=== PATIENT | male | born 1945 | race Caucasian/White ===

== ENCOUNTER 2017-02-26 07:26 | Inpatient (IN) | payer MEDICARE, OTHER ==
--- NOTE | 2017-02-14 14:48 | HP ---
HISTORY AND PHYSICAL: DATE OF SURGERY: 02/26/17. DATE OF OFFICE VISIT: 02/13/17. SURGEON: Aleah Gomez MD * (DICTATED BY LINA BOURNE) PROCEDURE: Right total knee revision, patella versus all 3 components. CHIEF COMPLAINT: Right knee pain. HISTORY OF PRESENT ILLNESS: Mr. Gabriel is a 71-year-old gentleman with complaints of right knee pain secondary to advanced osteoarthritis. He has failed conservative management, has elected to proceed with a right total knee arthroplasty, which is scheduled for 02/26/17, with Dr. Gomez. PAST MEDICAL HISTORY: Obesity, hypothyroidism, diverticulitis, hypertension, hypercholesterolemia, COPD, and GERD. PAST SURGICAL HISTORY: Right total knee arthroplasty, unknown bowel surgery, cholecystectomy, appendectomy, and tonsillectomy. CURRENT MEDICATIONS: 1. Aspirin 81 mg daily. 2. Levothyroxine 50 mcg daily. 3. Omeprazole 40 mg daily. 4. Simvastatin 20 mg daily. 5. Tamsulosin. 6. Lisinopril. ALLERGIES: No known drug allergies. FAMILY HISTORY: Cancer and emphysema. SOCIAL HISTORY: He is a 71-year-old gentleman, lives with his . He is retired. He does not smoke or use drugs. REVIEW OF SYSTEMS: A complete 14-point review of systems is reviewed with the patient, was all negative or noncontributory. PHYSICAL EXAMINATION GENERAL: He is well developed, well nourished, in no acute distress. VITAL SIGNS: He stands 6 feet tall, weighs 262 pounds, blood pressure is 136/89 , heart rate is 60. HEENT: Normocephalic, atraumatic. NECK: Supple. No palpable lymph nodes. CARDIO: Regular rate and rhythm. Strong S1 and S2. ABDOMEN: Soft, nontender, and nondistended. NEUROLOGIC: Alert and oriented x3. Cranial nerves II through XII are intact. MUSCULOSKELETAL: Right lower extremity, the skin is intact. There are no open wounds or abrasions. There is a well-healed scar for the anterior aspect of the right knee. His lower extremity muscle group strength is intact at 5/5. He has 2+ dorsalis pedis pulses and intact sensation. He has 20 to 90 degrees active motion of the knee. No varus or valgus instability. ASSESSMENT AND PLAN: Mr. Gabriel is a 71-year-old gentleman with continued complaints of right knee pain and swelling. He underwent a right total knee arthroplasty in March 2015. He has failed conservative management and continues to have daily pain and he has elected to proceed with a right total knee revision, patella versus all three components. Dr. Gomez discussed the risks and benefits of the surgery and all of his questions were answered. Coumadin, Colace, and Percocet were sent to his pharmacy for postoperative pain control and DVT prophylaxis. He will follow up with Dr. Gomez back 2 weeks after the surgery. LINA BOURNE [id number]/[facility] #: [id number] SYDNIE
[~2017-02-26 07:26] MED LIST: Buffered Lidocaine 0.9% SYRIN* 5 ML/SYR SYRINGE INTRADERM ONE; Dexamethasone IV* 4 MG/ML 1 ML (4 MG) IV SLOW PU ONE; Metoclopramide IV* 5 MG/ML 2 ML VIAL IV SLOW PU ONE
[2017-02-26] MEDS ORDERED: Metoclopramide IV* 5 MG/ML 2 ML VIAL ONE (07:40)
[2017-02-26] MEDS ORDERED: Dexamethasone IV* 4 MG/ML 1 ML (4 MG) ONE (07:40)
[2017-02-26] MEDS ORDERED: Buffered Lidocaine 0.9% SYRIN* 5 ML/SYR SYRINGE ONE (07:41)
[2017-02-26] MEDS ORDERED: ceFAZolin 2 GM PREMIX (*) 50 ML IVPB ONE (07:41)
[2017-02-26] MEDS ORDERED: Morphine PF AMP (0.5MG/ML)* 5 MG/10 ML AMP ONE (08:41)
[2017-02-26] MEDS ORDERED: Midazolam* 1 MG/ML 2 ML VIAL (2 MG) ONE ×2 (08:41→11:58)
[2017-02-26] MEDS ORDERED: Lidocaine 2% PF * 5 ML VIAL ONE (08:42)
[2017-02-26] MEDS ORDERED: Bupivacaine 0.5% SDV PF* 30 ML VIAL ONE (08:48)
[2017-02-26] MEDS ORDERED: fentaNYL* 50 MCG/ML 2 ML VIAL (100 MCG VIAL) ONE ×2 (08:50→13:10)
[2017-02-26] MEDS ORDERED: Propofol* 10 MG/ML 20 ML BTL IV PUSH ONE (08:52)
[2017-02-26] MEDS ORDERED: Midazolam* 1 MG/ML 5 ML VIAL (5 MG) ONE (10:22)
[2017-02-26] MEDS ORDERED: KETAMINE HCL* 50 MG/ML 10 ML VIAL ONE (10:22)
[2017-02-26] MEDS ORDERED: Acetaminophen TAB* 325 MG PO PRN (10:41)
[2017-02-26] MEDS ORDERED: Ketorolac INJ* 30 MG/ML 1 ML VIAL IV PRN (10:41)
[2017-02-26] MEDS ORDERED: HYDROcodone/ACETAMIN 5-325 MG* 1 TAB PO PRN (10:41)
[2017-02-26] MEDS ORDERED: HYDROmorphone INJ* 1 MG/ML CARPUJECT SYRINGE IV PRN (10:41)
[2017-02-26] MEDS ORDERED: Ondansetron INJ* 2 MG/ML VIAL IV PRN ×2 (10:41→10:45)
[2017-02-26] MEDS ORDERED: EPHEDrine (Pressors)* 50 MG/ML VIAL IV PUSH PRN (10:45)
[2017-02-26] MEDS ORDERED: Naloxone* 0.4 MG/ML 1 ML VIAL IV PRN (10:45)
[2017-02-26] MEDS ORDERED: Nalbuphine* 20 MG/ML 1 ML VIAL IV PRN (10:45)
[2017-02-26] MEDS ORDERED: Lactated Ringers 500 ml BAG* 500 ML IV PRN (10:45)
[2017-02-26] MEDS ORDERED: Scopolamine 1.5 mg* PATCH TRANSDERM SCH (11:00)
[2017-02-26] MEDS ORDERED: OBEPIDURAL* 250 ML EPIDURAL SCH (11:00)
[2017-02-26] MEDS ORDERED: Bisacodyl SUPP* 10 MG SUPP PR PRN (12:34)
[2017-02-26] MEDS ORDERED: Polyethylene Glycol 3350* 17 GM PACKET PO PRN (12:34)
[2017-02-26] MEDS ORDERED: Ibuprofen TAB* 800 MG PO PRN (12:39)
[2017-02-26] MEDS: fentaNYL* 50 MCG/ML 2 ML VIAL (100 MCG VIAL) IV PRN ×2 (13:11→14:08)
[2017-02-26] MEDS ORDERED: Acetaminophen TAB* 325 MG ONE (13:17)
[2017-02-26] MEDS: Acetaminophen TAB* 325 MG PO SCH ×2 (13:21→20:59)
--- NOTE | 2017-02-26 13:41 | RAD ---
HISTORY: Status post right knee arthroplasty revision COMPARISONS: January 04, 2017 VIEWS: 3, Frontal and lateral views of the right knee FINDINGS: BONE DENSITY: Normal. BONES: The patient is status post right knee arthroplasty. There is no hardware failure or osteolysis. JOINTS: The patient is status post right knee arthroplasty. ALIGNMENT: There is no dislocation. SOFT TISSUES: Unremarkable. OTHER FINDINGS: There is post surgical change to the soft tissues IMPRESSION: STATUS POST RIGHT KNEE ARTHROPLASTY
--- NOTE | 2017-02-26 13:43 | RAD ---
INDICATION: Right knee arthroplasty revision COMPARISONS: January 04, 2017 TECHNIQUE: Fluoroscopy was provided for a surgical procedure. Total fluoroscopy time is: 7.3 seconds FINDINGS: Spot images demonstrate right knee arthroplasty IMPRESSION: FLUOROSCOPY WAS PROVIDED FOR A SURGICAL PROCEDURE CPT II Codes: 6045F
[2017-02-26] MEDS: oxyCODONE TAB* 5 MG TAB PO PRN ×2 (15:55→20:59)
[2017-02-26] MEDS: Atorvastatin* 10 MG TAB PO SCH (15:55)
[2017-02-26] MEDS: ceFAZolin 1 GM in Dextrose (*) 1 GM/50 ML BAG IVPB SCH (15:58)
[2017-02-26] MEDS ORDERED: ceFAZolin 1 GM VIAL(*) 1 GM in NS 0.9% 50 ML* 50 ML IVPB SCH (16:00)
--- NOTE | 2017-02-26 17:26 | CONS ---
CONSULTATION REPORT: DATE OF CONSULT: 02/26/17. TIME OF EVALUATION: 1:45 p.m. REQUESTING PHYSICIAN: Dr. Gomez. REASON FOR CONSULTATION: Management of comorbidities. CHIEF COMPLAINT: "I feel fine." HISTORY OF PRESENT ILLNESS: Mr. Gabriel is a 72-year-old male with a past medical history of obesity with a BMI of 36, hypothyroidism, diverticulitis, hypertension, hyperlipidemia, COPD, GERD, who was admitted to [facility] for an elective right total knee revision. Mr. Gabriel has had complaints of right knee pain secondary to advanced osteoarthritis and he has failed conservative management. Initial plan was to proceed with a right total knee arthroplasty revision, patellar versus all 3 components. He did undergo the procedure today and only the patellar revision needed with an estimated EBL of 200 mL. The hospitalist service was consulted for medical management of his comorbidities. He states that his pain is a 5/10 at this time if he moves his right lower extremity, but otherwise he feels well. Denies nausea, shortness of breath, numbness or tingling of his right right lower extremity. PAST MEDICAL HISTORY: 1. Obesity with BMI of 36. 2. Hypothyroidism. 3. Diverticulitis. 4. Hypertension. 5. Hypercholesterolemia. 6. COPD. 7. GERD. PAST SURGICAL HISTORY: 1. Status post right total knee arthroplasty. 2. Status post cholecystectomy. 3. Status post appendectomy. 4. Status post tonsillectomy. MEDICATIONS LIST: 1. Aspirin 81 mg p.o. daily. 2. Finasteride 5 mg p.o. daily. 3. Ibuprofen 1000 mg p.o. q. 12 hours p.r.n. pain. 4. Levothyroxine 100 micrograms p.o. q.a.m. 5. Lisinopril 5 mg p.o. daily. 6. Omeprazole 40 mg p.o. q.a.m. 7. Simvastatin 10 mg p.o. daily. 8. Tamsulosin 0.4 mg p.o. q.a.m. ALLERGIES: No known drug allergies. FAMILY HISTORY: There is a history of cancer and emphysema. SOCIAL HISTORY: No history of tobacco, alcohol, or drug use. Surrogate decision maker is his , Sonia Gabriel. Phone number is [phone]. REVIEW OF SYSTEMS: A 14-point review of systems was performed and all the pertinent negative and positive findings are in the HPI. PHYSICAL EXAM: Vital Signs: Temperature 97.3, heart rate is 54, respiratory rate is 16, oxygen saturation is 100% on 2 L nasal cannula, blood pressure is 131/76. General: The patient is a pleasant, obese gentleman lying in bed, in no acute distress. HEENT: Pupils are equal. Moist mucous membranes. CVS: Normal S1 and S2. Regular rate and rhythm. Chest: Breath sounds present bilaterally with no added sounds. Abdomen: Obese, bowel sounds are present. Extremities: There is a cryo unit and Hemovac to the right knee. He has good capillary refills bilaterally. Sensation is intact. Neuro: He is alert, awake and oriented x3. Able to move all 4 extremities. ASSESSMENT AND PLAN: Mr. Gabriel is a 71-year-old male with a past medical history of obesity, hypothyroidism, hypertension, hypercholesterolemia, COPD, and GERD, who was admitted for an elective right total knee revision with estimated blood loss of 200 mL. Hospitalist service was consulted to assist with management of comorbidities. 1. Status post right total knee revision. Management as per Ortho. 2. Hypertension is controlled. We will continue his lisinopril and monitor his blood pressure. 3. BPH. We will continue finasteride and tamsulosin. 4. GERD. We will continue omeprazole. 5. Hyperlipidemia. We will continue simvastatin. 6. DVT prophylaxis will be with Lovenox as per Orthopedics. 7. Code status is full. TIME SPENT: Approximately 45 minutes were spent with the patient interview, medical record review, physical examination to complete this consultation, more than half of this time was spent [id number] with the patient in coordination of care. [id number]/[facility] #: [id number] SYDNIE
[2017-02-26] MEDS: Docusate CAP* 100 MG PO SCH (20:59)
[2017-02-27] MEDS: Acetaminophen TAB* 325 MG PO SCH ×2 (00:01→05:31)
[2017-02-27] MEDS: ceFAZolin 1 GM in Dextrose (*) 1 GM/50 ML BAG IVPB SCH ×2 (00:01→07:35)
[2017-02-27] MEDS: oxyCODONE TAB* 5 MG TAB PO PRN ×2 (05:30→16:42)
[2017-02-27] MEDS: Levothyroxine TAB* 100 MCG TAB PO SCH (05:31)
[2017-02-27] MEDS ORDERED: Morphine INJ* 2 MG/ML 1 ML SYRINGE (TWO MG - NEW SYRINGE VERSION) IV PRN (06:00)
[2017-02-27] MEDS ORDERED: diPHENhydraMINE IV* 50 MG/ML 1 ml VIAL (BENADRYL) IV PRN (06:00)
[2017-02-27] MEDS ORDERED: Acetaminophen TAB* 325 MG PO PRN (06:00)
[2017-02-27] MEDS ORDERED: Ondansetron INJ* 2 MG/ML VIAL IV PRN (06:00)
[2017-02-27] MEDS ORDERED: Ondansetron TAB* 4 MG PO PRN (06:00)
--- NOTE | 2017-02-27 06:29 | OP ---
DATE OF OPERATION: 02/26/17 - ROOM #343 DATE OF : 43 ATTENDING SURGEON: Aleah Gomez MD MAIL SORTING SUPERVISOR: LINA Hernandez. Mr. Frances did help throughout the procedure with preparation of the leg, wound retraction, manipulation of the knee, and wound closure. ANESTHESIOLOGIST: Dr. Yamilex Willingham. ANESTHESIA: Spinal. PRE-OP DIAGNOSIS: Painful right total knee arthroplasty. POST-OP DIAGNOSIS: Painful right total knee arthroplasty with patellar component malalignment and loosening. OPERATIVE PROCEDURE: Revision right total knee arthroplasty, revision of patellar component, wide scar excision. ESTIMATED BLOOD LOSS: Less than 200 cc. TOURNIQUET TIME: 53 minutes. SPECIMENS: Multiple culture swabs were sent to Microbiology for cultures and sensitivities. Scar tissue was sent to Pathology as well. Removed patellar button was sent to Pathology. BRIEF HISTORY/INDICATIONS: Mr. Gabriel is a 71-year-old gentleman with painful right total knee arthroplasty, sent for surgery in March 2015 at an outside facility. The patient came to see me in December of this year. He had questions about his chronic pains and surgery. After radiographs were obtained, there was some malalignment of all 3 components with the patellar component being most malaligned. I did offer him revision total knee arthroplasty. At preoperative H and P, the patient and I discussed revising the patellar component versus all 3 components. I was concerned about explanting the femur and tibia due to bone loss. The patient wished for me to make an intraoperative decision. Informed consent was obtained from the patient. He understood the risk of surgery included but were not limited to bleeding, infection, damage to nearby structures, continued pain, need for further surgery, intraoperative fracture, nerve palsy, hardware failure or loosening, knee stiffness, loss of motion, stroke, heart attack, blood clot, and . He wished to proceed. INTRAOPERATIVE FINDINGS: Intraoperatively, the patient was noted to have 5 to 125 degrees of flexion at the knee after anesthesia was placed. Upon opening the knee, there was no obvious purulence. There was extensive scar tissue around the entire capsule, medial and lateral gutters. The patellar component was malaligned and loose. Femoral and tibial components were checked for any looseness and none was found. The components were stable. Decision was made intraoperatively to leave the femoral and tibial components, performed wide scar excision, and revised the patellar component. DESCRIPTION OF PROCEDURE: Mr. Gabriel was identified in the preanesthesia unit. His right lower extremity was marked as the correct operative site. Informed consent was signed and placed in the chart. The patient was taken to the operating room and placed under spinal anesthesia. A Bess catheter was placed. Tourniquet was placed on the right thigh. Right lower extremity was prepped and draped in the usual sterile fashion. Preop time-out was made to correctly identify the patient side and site. Appropriate perioperative antibiotics were given within 1 hour of incision. The patient's former midline incision was used. Tourniquet was inflated until the tourniquet time for this procedure, was 53 minutes. A 10-blade was used to incise the skin layer and carried down to the extensor mechanism. A new 10- blade was used to make a standard medial parapatellar arthrotomy. I could not blanquita the patella because of extensive scar tissue. This was meticulously excised using electrocautery. There was a significant amount of scar tissue in the medial and lateral gutters , suprapatellar pouch, as well as around the patellar tendon. This was all carefully excised. At this time the patella was subluxed laterally and the knee was flexed up. Scar tissue and soft tissue were carefully removed from around the femoral and tibial implants. These implants were checked for any loosening. No loosening of the femoral or tibial implants was found. Femoral component was slightly flexed, although the soft tissue along the anterior femur did not look inflamed. With range of motion, there was no clunking or catching along the superior portion of the femoral component. Decision was made to leave the femoral and tibial components. The patella was everted. A large amount of scar tissue and soft tissue was excised from around the patella. At this point, it was visible that there was some patellar loosening. Small oscillating saw was used to remove the patella with minimal bone loss. Next, the large oscillating saw was used to make patellar cut based on preop x-rays and caliber measurements. The patella was sized to a size 35. A 35 trial patellar was placed after the peg holes were drilled, any excess cement were carefully removed. The knee was taken through a range of motion. There was no catching of the patellar trial at any point in tracking. Patellofemoral tracking was satisfactory. At this point, C-arm views were obtained including sunrise views. The patellar cut was deemed to be satisfactory with satisfactory alignment. The patellar bone was carefully irrigated and dried. A size 35 and 3 peg all poly patellar component from [employer] was cemented on to the patellar. Simplex cement with tobramycin was used. Tourniquet was turned down at 53 minutes. Once the cement had fully cured, the patella was taken through a range of motion. There was good patellofemoral tracking with no abnormal tracking. No clunking near the femoral component was noted. The knee was copiously irrigated with sterile saline. Electrocautery was used to obtain meticulous hemostasis. The medial arthrotomy was closed using interrupted #1 Vicryl over a medium Hemovac drain. The rest of the incision was closed in a layered fashion using 0 and 2-0 Vicryls. Skin was closed using running 3-0 nylon suture. Sterile Xeroform, 4x4, and Webril were used to cover the incision. Dg wrap and cold pack were placed over this. The patient's anesthesia was reversed without difficulty. He was taken to the PACU in stable condition. Intended weightbearing will be weightbearing as tolerated. Intended DVT prophylaxis will be Lovenox in the hospital and aspirin on discharge. [id number]/[facility] #: [id number] SYDNIE
[2017-02-27 06:40] LABS: Hematocrit 36 % (42-52); Hemoglobin 12.3 g/dl (14.0-18.0)
[2017-02-27 06:59] LABS: BUN/Creatinine Ratio 12.9 (8-20); Calcium 8.8 mg/dL (8.6-10.3); EGFR African American 102.7 (>60); EGFR Non-African American 79.9 (>60); Potassium 4.4 mmol/L (3.5-5.0)
[2017-02-27] MEDS: Tamsulosin CAP* 0.4 MG PO SCH (07:34)
[2017-02-27] MEDS: Finasteride TAB* 5 MG PO SCH (07:34)
[2017-02-27] MEDS: Docusate CAP* 100 MG PO SCH ×2 (07:34→19:53)
[2017-02-27] MEDS: oxyCODONE/Acetamin 5/325 MG* TAB PO PRN ×4 (07:34→19:53)
[2017-02-27] MEDS: Lisinopril TAB* 5 MG PO SCH (07:34)
[2017-02-27] MEDS: Omeprazole CAP* 20 MG PO SCH (07:35)
--- NOTE | 2017-02-27 07:52 | PN ---
Progress Note - Progress Note Date of Service: 02/27/17 SOAP: Subjective: Pt. is alert, reports pain is controlled. Objective: RLE - drain removed, tip intact with 200 cc ss drainage. distally NVI. Vital Signs: Temp Pulse Resp BP Pulse Ox 98.3 F 63 16 120/54 96 02/27/17 07:29 02/27/17 07:29 02/27/17 07:34 02/27/17 07:29 02/27/17 07:29 Laboratory Results - last 24 hr 02/27/17 02/27/17 02/27/17 06:19 06:19 06:19 Hgb 12.3 L Hct 36 L INR (Anticoag Therapy) 0.90 Sodium 131 L Potassium 4.4 Chloride 99 L Carbon Dioxide 28 Anion Gap 4 BUN 12 Creatinine 0.93 Est GFR ( Amer) 102.7 Est GFR (Non-Af Amer) 79.9 BUN/Creatinine Ratio 12.9 Glucose 147 H Calcium 8.8 Assessment: 71 yo M pod 1 s/p revision RTKA - patella component and scar excision Plan: wbat pt/ot xrays satisfactory lovenox in hospital, home on aspirin prn analgesia
[2017-02-27] MEDS: Enoxaparin(*) 30 MG/0.3 ML SYR SUBCUT SCH (10:17)
--- NOTE | 2017-02-27 10:31 | PN ---
Progress Note - Progress Note Date of Service: 02/27/17 SOAP: Subjective: Pt sitting comfortably in chair. No complaint of pain. Objective: Dressing clean and dry. Drained pulled earlier. Calves soft, nontender. DP pulses 2+ Vital Signs: Temp Pulse Resp BP Pulse Ox 98.3 F 63 16 120/54 96 02/27/17 07:29 02/27/17 07:29 02/27/17 10:17 02/27/17 07:29 02/27/17 07:29 Laboratory Last Values Hgb 12.3 g/dl (14.0-18.0) L 02/27/17 06:19 Hct 36 % (42-52) L 02/27/17 06:19 INR (Anticoag Therapy) 0.90 (0.89-1.11) 02/27/17 06:19 Sodium 131 mmol/L (133-145) L 02/27/17 06:19 Potassium 4.4 mmol/L (3.5-5.0) 02/27/17 06:19 Chloride 99 mmol/L (101-111) L 02/27/17 06:19 Carbon Dioxide 28 mmol/L (22-32) 02/27/17 06:19 Anion Gap 4 mmol/L (2-11) 02/27/17 06:19 BUN 12 mg/dL (6-24) 02/27/17 06:19 Creatinine 0.93 mg/dL (0.67-1.17) 02/27/17 06:19 Est GFR ( Amer) 102.7 (>60) 02/27/17 06:19 Est GFR (Non-Af Amer) 79.9 (>60) 02/27/17 06:19 BUN/Creatinine Ratio 12.9 (8-20) 02/27/17 06:19 Glucose 147 mg/dL (70-100) H 02/27/17 06:19 Calcium 8.8 mg/dL (8.6-10.3) 02/27/17 06:19 Assessment: 71 yo male s/p right revision TKA POD#1 Plan: PT/OT WBAT Pain control Lovenox for DVT prophylaxis, he will go home on ASA
--- NOTE | 2017-02-27 13:25 | PN ---
Hospitalist Progress Note HOSPITALIST ADDENDUM Hospitalist service consulted for management of comorbidities. BP is well controlled with his usual Lisinopril dose. Continue current management.
[2017-02-27] MEDS: Magnesium Hydroxide LIQ* 30 ML UDC PO PRN (16:43)
[2017-02-27] MEDS: Atorvastatin* 10 MG TAB PO SCH (17:05)
[2017-02-28] MEDS: oxyCODONE/Acetamin 5/325 MG* TAB PO PRN ×4 (04:26→16:15)
[2017-02-28] MEDS: oxyCODONE TAB* 5 MG TAB PO PRN ×2 (06:23→10:44)
[2017-02-28] MEDS: Levothyroxine TAB* 100 MCG TAB PO SCH (06:24)
[2017-02-28 07:21] LABS: Hematocrit 35 % (42-52); Hemoglobin 11.9 g/dl (14.0-18.0)
--- NOTE | 2017-02-28 08:18 | PN ---
Progress Note - Progress Note Date of Service: 02/28/17 SOAP: Subjective: resting comfortably with minimal pain Objective: Vital Signs Temp Pulse Resp BP Pulse Ox 97.9 F 56 18 128/77 97 02/28/17 07:30 02/28/17 07:30 02/28/17 07:53 02/28/17 07:30 02/28/17 07:35 Laboratory Last Values Hgb 11.9 g/dl (14.0-18.0) L 02/28/17 06:59 Hct 35 % (42-52) L 02/28/17 06:59 INR (Anticoag Therapy) 0.90 (0.89-1.11) 02/27/17 06:19 Sodium 131 mmol/L (133-145) L 02/27/17 06:19 Potassium 4.4 mmol/L (3.5-5.0) 02/27/17 06:19 Chloride 99 mmol/L (101-111) L 02/27/17 06:19 Carbon Dioxide 28 mmol/L (22-32) 02/27/17 06:19 Anion Gap 4 mmol/L (2-11) 02/27/17 06:19 BUN 12 mg/dL (6-24) 02/27/17 06:19 Creatinine 0.93 mg/dL (0.67-1.17) 02/27/17 06:19 Est GFR ( Amer) 102.7 (>60) 02/27/17 06:19 Est GFR (Non-Af Amer) 79.9 (>60) 02/27/17 06:19 BUN/Creatinine Ratio 12.9 (8-20) 02/27/17 06:19 Glucose 147 mg/dL (70-100) H 02/27/17 06:19 Calcium 8.8 mg/dL (8.6-10.3) 02/27/17 06:19 incision: c/d; dressing changed PE: NVI Assessment: POD#2 right TKA revision Plan: 1) PT/OT- WBAT 2) Lovenox/SCD's for DVT prophylaxis 3) Home today on ASA BID x 4 weeks; F/U with Dr. Gomez in 2 weeks 4) Lovenox today prior to D/C
[2017-02-28] MEDS: Magnesium Hydroxide LIQ* 30 ML UDC PO PRN (08:41)
[2017-02-28] MEDS: Lisinopril TAB* 5 MG PO SCH (08:42)
[2017-02-28] MEDS: Finasteride TAB* 5 MG PO SCH (08:42)
[2017-02-28] MEDS: Docusate CAP* 100 MG PO SCH (08:42)
[2017-02-28] MEDS: Omeprazole CAP* 20 MG PO SCH (08:42)
[2017-02-28] MEDS: Tamsulosin CAP* 0.4 MG PO SCH (08:42)
[2017-02-28] MEDS: Enoxaparin(*) 30 MG/0.3 ML SYR SUBCUT SCH (09:49)
[2017-02-28 16:12] VITALS: BP 133/61
[2017-02-28] MEDS: Atorvastatin* 10 MG TAB PO SCH (16:15)
--- NOTE | 2017-02-28 23:31 | DS ---
DISCHARGE SUMMARY: DATE OF ADMISSION: 02/26/17 DATE OF DISCHARGE: 02/28/17 SURGEON: Dr. Aleah Gomez * (DICTATED BY LINA BOURNE) PRINCIPAL DIAGNOSIS: Painful right total knee arthroplasty. DISCHARGE DIAGNOSIS: Painful right total knee arthroplasty. HISTORY OF PRESENT ILLNESS: Mr. Gabriel is a 71-year-old gentleman with continued complaints of right knee pain. He underwent a right total knee arthroplasty approximately 2 years ago. He has failed conservative management and elected to proceed with a revision of right total knee arthroplasty. HOSPITAL COURSE: Mr. Gabriel was admitted electively to the hospital on 02/26/17 and underwent revision of right total knee arthroplasty, revision of patellar component. He tolerated the procedure well with no complications. Postoperatively, he was put on Lovenox for DVT prophylaxis. He made daily improvements with his physical therapy. On postop day #1, his H and H was 12.3 and 36; on his postop day #2, is 11.9 and 35. At the time of discharge on 02/28, he was afebrile. His vital signs were stable. DISCHARGE MEDICATIONS: 1. Lipitor 10 mg daily. 2. Colace 100 mg once 1 to 3 tabs daily as needed. 3. Aspirin 325 twice a day for 4 weeks. 4. Levothyroxine 100 mcg daily. 5. Lisinopril 5 mg daily. 6. Omeprazole 40 mg daily. 7. Percocet 5/325 one to two 2 tabs every 4 to 6 hours as needed for pain. 8. Flomax 0.4 mg every morning. PHYSICAL EXAMINATION UPON DISCHARGE: The patient is afebrile. Vital signs were stable. The wound was clean and dry. There are no signs of infection. His lower extremity muscle group strengths were intact at 5/5. He has intact sensation, 2+ dorsalis pedis pulses and he was ambulating well with aid of a walker. DISCHARGE INSTRUCTIONS: He is discharged home in stable condition. He is asked to aspirin 325 twice a day for the next 4 weeks for DVT prophylaxis. He was given prescription for Percocet 5/325. He can take 1 to 2 pills every 4 to 6 hours as needed for pain. He was also given a prescription for Colace to take 1 to 3 tabs daily as needed for constipation. He will start outpatient physical therapy next week. A prescription has been provided in our office system and we will fax it wherever he would like to go. To follow up with Dr. Gomez in 2 weeks. He can take a shower, let soap and water run over in his incision, but he cannot take a bath or submerge the knee in water. We have asked him to call our office with any questions or concerns; otherwise, we will see him on his postop visit in 2 weeks. LINA BOURNE [id number]/[facility] #: [id number] SYDNIE
[2017-03-01] MEDS ORDERED: Scopolomine PATCH Remove* 1 NOTE MISC PATCH OFF ONE (10:51)
== END 2017-02-28 16:33 | disposition home or self-care (01) | DRG 302 ==
LOC: AA 07:26 → SSU 14:51
PROVIDERS: ADMIT Orthopaedic Surgery Adult Reconstructive Orthopaedic Surgery; ATTEND Orthopaedic Surgery Adult Reconstructive Orthopaedic Surgery
PROC: 0SWC0JC Revision of Synthetic Substitute in Right Knee Joint, Patellar Surface, Open Approach (ICD-10-PCS; principal; 2017-02-26 09:30)
DX: T84.84XA Pain due to internal orthopedic prosthetic devices, implants and grafts, initial encounter (principal); T84.032A Mechanical loosening of internal right knee prosthetic joint, initial encounter; J44.9 Chronic obstructive pulmonary disease, unspecified; Y79.2 Prosthetic and other implants, materials and accessory orthopedic devices associated with adverse incidents; E66.9 Obesity, unspecified; E03.9 Hypothyroidism, unspecified; I10 Essential (primary) hypertension; E78.00 Pure hypercholesterolemia, unspecified; H26.9 Unspecified cataract; N40.0 Benign prostatic hyperplasia without lower urinary tract symptoms; K21.9 Gastro-esophageal reflux disease without esophagitis; Z80.9 Family history of malignant neoplasm, unspecified; Z83.6 Family history of other diseases of the respiratory system; Y92.9 Unspecified place or not applicable; Z79.82 Long term (current) use of aspirin; Z68.36 Body mass index [BMI] 36.0-36.9, adult; Z87.891 Personal history of nicotine dependence; Z72.89 Other problems related to lifestyle; Z68.35 Body mass index [BMI] 35.0-35.9, adult
CPT/HCPCS: 36415; 80048; 85014; 85018; 85610; 87070; 87073; 87205; 87640; 87641; 88300; A9270-GY; C1776; J0690; J1100; J1200; J1650; J2250; J2405; J2704; J2765; J3010

== ENCOUNTER 2021-08-15 05:48 | Observation (INO) ==
[2021-08-15] MEDS ORDERED: Lactated Ringers 1000 ml BAG 1,000 ML IV SCH ×2 (06:00→10:00)
[2021-08-15] MEDS ORDERED: NS 0.9% 1000 ml BAG 1,000 ML IV ONE (06:00)
[2021-08-15] MEDS ORDERED: Buffered Lidocaine 1% SYRIN 1 ml INTRADERM ONE (06:00)
[2021-08-15] MEDS ORDERED: ceFAZolin 2 GM in NS PREMIX 2 GM/100 ML BAG IVPB ONE (06:25)
[2021-08-15] MEDS ORDERED: Midazolam 2 mg/2 ml VIAL 1 mg/ml 2 ml VIAL (2 mg) ONE ×2 (06:42→09:19)
[2021-08-15] MEDS ORDERED: Lidocaine 2% PF 5 ML VIAL ONE (06:42)
[2021-08-15] MEDS ORDERED: Propofol 10 MG/ML 20 ML BTL ONE ×3 (06:42→10:06)
[2021-08-15] MEDS ORDERED: Ketamine HCL 50 mg/ml 10 ml VIAL (500 MG) ONE (06:49)
[2021-08-15] MEDS ORDERED: Sterile Water for Inj 10 ML ONE ×2 (06:51→07:49)
[2021-08-15] MEDS ORDERED: Glycopyrrolate IV 0.2 MG/ML 1 ML VIAL ONE (07:32)
[2021-08-15] MEDS ORDERED: Bupivacaine 0.5% SDV PF 30ML VIAL ONE (07:33)
[2021-08-15] MEDS ORDERED: Phenylephrine 40 mcg/mL 10mL (400mcg) SYRINGE ONE (07:47)
[2021-08-15] MEDS ORDERED: EPHEDrine (Pressors) 50 MG/ML VIAL ONE (07:47)
[2021-08-15] MEDS ORDERED: Phenylephrine IV 10 MG/ML 1 ml VIAL ONE (07:55)
[2021-08-15] MEDS ORDERED: ceFAZolin VIAL VIAL ONE (08:05)
[2021-08-15] MEDS ORDERED: Naloxone 0.4 mg VIAL 0.4 mg/ml 1 ml VIAL IV PRN (08:40)
[2021-08-15] MEDS ORDERED: DiMENhydriNATE IV 50 mg/ml 1 ml VIAL IV PUSH PRN (08:40)
[2021-08-15] MEDS ORDERED: HYDROmorphone 1 MG/1 ML SYRINGE IV PRN (08:40)
[2021-08-15] MEDS ORDERED: Acetaminophen IV 1 GM/100ML 100 ML IV ONE (08:59)
[2021-08-15] MEDS ORDERED: Ondansetron 4 mg VIAL 2 MG/ML 2 ml VIAL IV PRN (09:32)
[2021-08-15] MEDS ORDERED: Ondansetron ODT 4 mg TAB 4 MG TAB PO PRN (09:32)
[2021-08-15] MEDS ORDERED: Lactulose 30 ml UDC PO PRN (09:32)
[2021-08-15] MEDS ORDERED: diPHENhydraMINE IV 50 MG/ML 1 ml VIAL (BENADRYL) IV PRN (09:32)
[2021-08-15] MEDS ORDERED: diPHENhydraMINE 25 mg TAB PO PRN (09:32)
[2021-08-15] MEDS ORDERED: Magnesium Hydroxide LIQ 30 ML UDC PO PRN (09:32)
[2021-08-15] MEDS ORDERED: Albuterol/Ipratropium NEB.SOL (2.5/0.5 MG) 3 ML NEB.SOLN INH PRN (09:37)
[2021-08-15] MEDS ORDERED: HYDROmorphone 0.5 MG/0.5 ML SYRINGE ONE (10:23)
[2021-08-15] MEDS ORDERED: Mometasone/Formoter 100/5 MDI INH PRN (13:22)
[2021-08-15] MEDS: ceFAZolin 1 GM ADVAN 1 GM in NS 0.9% 50 ML 50 ML IVPB SCH (16:48)
[2021-08-15] MEDS: Budesonide NEB 0.5 MG/2 ML NEB.SOLN INH SCH (20:12)
[2021-08-15] MEDS: Magnesium Hydroxide LIQ 30 ML UDC PO SCH (21:42)
[2021-08-16] MEDS: ceFAZolin 1 GM ADVAN 1 GM in NS 0.9% 50 ML 50 ML IVPB SCH ×2 (00:09→09:38)
[2021-08-16 05:44] LABS: Hematocrit 35 % (42-52); Hemoglobin 11.5 g/dL (14.0-18.0); Mean Platelet Volume 9.7 fL (7.4-10.4); Platelet Count 129 10^3/uL (150-450)
[2021-08-16 06:22] LABS: Blood Urea Nitrogen 11 mg/dL (6-24); CO2 Carbon Dioxide 30 mmol/L (22-32); Calcium 8.7 mg/dL (8.6-10.3); Chloride 102 mmol/L (101-111); Glucose 152 mg/dL (70-100); Sodium 134 mmol/L (135-145); eGFR CKD-EPI 88.6 (>60)
[2021-08-16 06:35] LABS: Anion Gap 2 mmol/L (2-11)
[2021-08-16] MEDS: Budesonide NEB 0.5 MG/2 ML NEB.SOLN INH SCH (08:48)
[2021-08-16] MEDS ORDERED: Lisinopril/HCTZ 10/12.5 TA(NF) PO SCH (09:00)
[2021-08-16] MEDS ORDERED: Vitamin THERAPEUTIC TAB PO SCH (09:00)
[2021-08-16] MEDS: Magnesium Hydroxide LIQ 30 ML UDC PO SCH (09:43)
[2021-08-16 15:38] VITALS: BP 161/78
== END 2021-08-16 16:55 | disposition home or self-care (01) ==
LOC: INTOOBSV 05:48 → AA 05:48 → SSU 13:07
PROVIDERS: ADMIT Orthopaedic Surgery Adult Reconstructive Orthopaedic Surgery; ATTEND Orthopaedic Surgery Adult Reconstructive Orthopaedic Surgery